=== PATIENT | male | born 2000 | race Two or more races ===

== ENCOUNTER 2022-03-15 20:19 | Emergency (ER) | payer OTHER ==
[~2022-03-15] VITALS: Ht 182.9 cm; Wt 87.1 kg
[2022-03-15] MEDS ORDERED: COZAAR25 MG (21:12)
[2022-03-15] MEDS ORDERED: LORAZEPAN (21:13)
[2022-03-15] MEDS ORDERED: ABATINEX (21:13)
== END 2022-03-15 23:20 | disposition home or self-care (01) ==
LOC: ER 20:19
DX: M94.0 Chondrocostal junction syndrome [Tietze] (principal)